=== PATIENT | male | born 1955 | race Two or more races ===

== ENCOUNTER 2017-06-07 08:00 | Inpatient (IN) | payer BC ==
[2017-06-07] VITALS: BP 123/71
[~2017-06-07] VITALS: Ht 167.6 cm; Wt 63.5 kg
--- NOTE | 2017-06-07 08:10 | NUR ---
PRESENTS TO ER C/O FEVER, NAUSEA, VOMITING AND HEADACHE X YESTERDAY. PATIENT CAME BACK FROM [facility] LAST 06/04/17. A/OX 4. BREATHING EVEN AND UNLABORED. NO SOB. VITALS STABLE. SAFETY AND COMFORT MEASURES IN PLACE. AWAITING MD ORDERS.
--- NOTE | 2017-06-07 08:15 | NUR ---
URINE OBTAINED AND SENT TO LAB.
--- NOTE | 2017-06-07 08:25 | NUR ---
NEW IV STARTED ON RAC, 20 G. BLOOD DRAWN AND SENT TO LAB.
[2017-06-07 08:39] LABS: BASOPHILS % (AUTO) 0.3 % (0.0-2.0); EOSINOPHILS % (AUTO) 0.1 % (0.0-6.0); HEMATOCRIT 39 % (39-51); HEMOGLOBIN 13.3 g/dL (13.5-17.5); LYMPHOCYTES # (AUTO) 0.4 /CMM (0.8-4.8); LYMPHOCYTES % (AUTO) 10.4 % (20.0-44.0); MEAN CORPUSCULAR HEMOGLOBIN 29 PG (26.0-33.0); MEAN CORPUSCULAR HGB CONC 34 g/dl (31.0-36.0); MEAN CORPUSCULAR VOLUME 85 fL (80-96); MONOCYTES # (AUTO) 0.5 /CMM (0.1-1.30); MONOCYTES % (AUTO) 12.9 % (2.0-12.0); NEUTROPHILS # (AUTO) 3.1 /CMM (1.8-8.9); NEUTROPHILS % (AUTO) 76.3 % (43.0-81.0); PLATELET COUNT (AUTO) 132 /CMM (150-450); RDW COEFFICIENT OF VARIATION 13.6 (11.5-15.0); RED BLOOD CELL COUNT(AUTO) 4.65 MIL/uL (4.5-6.0); WHITE BLOOD COUNT (AUTO) 4.1 K/uL (4.3-11.0)
[2017-06-07 08:40] LABS: APPEARANCE,URINE CLEAR (CLEAR); BILIRUBIN,URINE NEGATIVE (NEGATIVE); BLOOD, URINE NEGATIVE Ery/uL (NEGATIVE); COLOR,URINE YELLOW (YELLOW); KETONES,URINE 1+ (NEGATIVE); LEUKOCYTE ESTERASE ,URINE NEGATIVE (NEGATIVE); NITRITE, URINE NEGATIVE (NEGATIVE); PROTEIN,URINE 1+ mg/dl (NEGATIVE); UGLUCOSE NEGATIVE (NEGATIVE); UROBILINOGEN,URINE 0.2 EU/dL (0.2)
[2017-06-07 08:48] LABS: CALCIUM, SERUM 9.8 mg/dL (8.5-10.1); CREATININE 1.3 mg/dL (0.6-1.3); POTASSIUM 3.9 mmol/L (3.5-5.1)
[2017-06-07 08:54] LABS: ALBUMIN 3.7 g/dL (3.4-5.0); BILIRUBIN,DIRECT 0.2 mg/dL (0.0-0.2); BILIRUBIN,TOTAL 1.2 mg/dL (0.2-1.0); TOTAL PROTEIN, SERUM 7.6 g/dL (6.4-8.2)
[2017-06-07 08:55] LABS: BACTERIA,URINE Rare /HPF (None Seen); RBC,URINE NONE SEEN /HPF (0-2); SQUAMOUS EPITHELIAL CELL,UR Few /HPF (None Seen); WBC,URINE 0-2 /HPF (0-3)
[2017-06-07 08:58] LABS: INR 1.26 (0.87-1.13); PROTHROMBIN TIME 13.1 SECS (9.5-12.7)
[2017-06-07] MEDS ORDERED: ONDANSETRON HCL/PF 4 MG/2 ML VIAL ONE (09:14)
[2017-06-07] MEDS ORDERED: ACETAMINOPHEN ES 500 MG TABLET ONE (09:14)
[2017-06-07] MEDS ORDERED: ONDANSETRON HCL/PF 4 MG/2 ML VIAL IVP ONE (09:30)
[2017-06-07] MEDS ORDERED: IV NS 0.9% 1,000 ML BAG IV ONE ×2 (09:30→10:30)
[2017-06-07] MEDS ORDERED: ACETAMINOPHEN ES 500 MG TABLET PO ONE (09:30)
[2017-06-07] MEDS ORDERED: CEFTRIAXONE 1 G VIAL ONE (10:23)
[2017-06-07] MEDS ORDERED: CEFTRIAXONE 1GM BAG (ER ONLY) 50 ML IV ONE (10:30)
--- NOTE | 2017-06-07 10:57 | NUR ---
REPORT GIVEN TO AISLINN PINO FOR YANIRA UPON ADMISSION.
--- NOTE | 2017-06-07 11:32 | NUR ---
PATIENT TRANSPORTED TO ROOM 102 VIA ACLS PROTOCOL. RNAISLINN TO PROVIDE YANIRA.
[2017-06-07 11:45] VITALS: BP 108/65
--- NOTE | 2017-06-07 11:45 | NUR ---
HELIOTHERAPIST OPENING RECEIVED PATIENT FROM ER. A/OX4. PATIENT C/O HEADACHE NOT RELIEVED BY TYLENOL IN ER. PATIENT C/O ABDOMINAL PAIN AND BLOATING. NO SOB, DIFFICULTY BREATHING. TELE READING NSR 71. PATIENT APPEARS STABLE AT THIS TIME. LAMINATOR PREFORMS AT BEDSIDE FOR VS. FAMILY AT BEDSIDE. DR ALVARADO AT BEDSIDE.
[2017-06-07] MEDS ORDERED: MAGNESIUM HYDROXIDE 30 ML UDC PO PRN (13:00)
[2017-06-07] MEDS ORDERED: ZOLPIDEM TARTRATE 5 MG TABLET PO PRN (13:00)
[2017-06-07] MEDS ORDERED: Z GUARD REMEDY 2 OZ OINT TP PRN (13:00)
[2017-06-07 13:14] LABS: ALBUMIN 2.8 g/dL (3.4-5.0); BILIRUBIN,DIRECT 0.2 mg/dL (0.0-0.2); BILIRUBIN,TOTAL 0.8 mg/dL (0.2-1.0); TOTAL PROTEIN, SERUM 5.8 g/dL (6.4-8.2)
[2017-06-07] MEDS: ONDANSETRON HCL/PF 4 MG/2 ML VIAL IVP PRN (13:15)
[2017-06-07] MEDS: HYDROCODONE/APAP 5/325MG 1 EACH TABLET PO PRN ×2 (13:15→17:40)
[2017-06-07] MEDS: IV NS 0.9% 1,000 ML IV PRN ×2 (13:19→23:11)
--- NOTE | 2017-06-07 15:17 | NUR ---
IRRIGATION SPECIALIST NOTES CONFIRMED WITH ISELA PINO IN ER SEPSIS REASSESSMENT COMPLETED PRIOR TO TRANSFER TO FLOOR
[2017-06-07 15:37] LABS: BAND % (MANUAL) 10 % (0.0-5.0); LYMPHOCYTES % (MANUAL) 18 % (16-48); MONOCYTES % (MANUAL) 6 % (0-11.0); NEUTROPHILS % (MANUAL) 66 (42-76)
[2017-06-07 15:42] LABS: RETICULOCYTE COUNT 1.9 % (0.6-2.5)
[2017-06-07 15:53] LABS: INR 1.36 (0.87-1.13); PROTHROMBIN TIME 14.2 SECS (9.5-12.7)
[2017-06-07 15:54] LABS: D-DIMER 3.48 mg/L(FEU (0.17-0.50)
[2017-06-07 16:00] VITALS: BP 112/74
--- NOTE | 2017-06-07 18:00 | NUR ---
RN CLOSING NOTES CONTROLLED PATIENT PAIN WITH PAIN MEDICATION ORDERED PRN. CONTROLLED TEMPERATURE WITH NON-PHARMACOLOGIC MEASURES. FAMILY AT BED SITE. ALERT AND ORIENTED X 4. KEPT CLEAN AND COMFORTABLE
[2017-06-07 20:00] VITALS: BP 119/74
--- NOTE | 2017-06-07 20:20 | NUR ---
RN INITIAL TELE NOTES RECEIVED PATIENT FROM AM SHIFT, A/OX4. PATIENT DENIES ANY PAIN. DENIES ANY SOB, ABLE TO AMB T BATHROOM, GAIT STABLE. TELE READING NSR 60'S. PATIENT APPEARS STABLE AT THIS TIME. NETWORK ENGINEERING ADVISOR AT BEDSIDE FOR VS. FAMILY AT BED SIDE, ALL NEEDS MET, CALL LIGHT WITHIN REACH.
[2017-06-07] MEDS: ACETAMINOPHEN 325 MG TABLET PO PRN (23:27)
--- NOTE | 2017-06-07 23:30 | NUR ---
NOTED PT T 100.1, COOLING MEASURES UNDERTAKEN, ROOM TEMP ADJUSTED, PRN TYLENOL 325 MG GIVEN,RECHECKED AFTER 1 HR TEMP DECREASE TO 98.9 WILL CONT TO MONITOR.
[2017-06-08 00:14] VITALS: BP 123/71
[2017-06-08 04:00] VITALS: BP 123/83
--- NOTE | 2017-06-08 06:35 | NUR ---
RN CLOSING TELE NOTES ENDORSED PATIENT FROM AM SHIFT, A/OX4. PATIENT DENIES ANY PAIN. DENIES ANY SOB, ABLE TO AMB T BATHROOM, GAIT STABLE. TELE READING NSR 60'S. PATIENT APPEARS STABLE AT THIS TIME. RECORD SEARCHER AT BEDSIDE FOR AM CARE. ALL NEEDS MET, CALL LIGHT WITHIN REACH.
[2017-06-08 06:44] LABS: BASOPHILS % (AUTO) 0.3 % (0.0-2.0); EOSINOPHILS % (AUTO) 0.4 % (0.0-6.0); HEMATOCRIT 40 % (39-51); HEMOGLOBIN 13.3 g/dL (13.5-17.5); LYMPHOCYTES # (AUTO) 1.2 /CMM (0.8-4.8); LYMPHOCYTES % (AUTO) 27.2 % (20.0-44.0); MEAN CORPUSCULAR HEMOGLOBIN 29 PG (26.0-33.0); MEAN CORPUSCULAR HGB CONC 34 g/dl (31.0-36.0); MEAN CORPUSCULAR VOLUME 86 fL (80-96); MONOCYTES # (AUTO) 0.4 /CMM (0.1-1.30); MONOCYTES % (AUTO) 7.9 % (2.0-12.0); NEUTROPHILS # (AUTO) 2.9 /CMM (1.8-8.9); NEUTROPHILS % (AUTO) 64.2 % (43.0-81.0); PLATELET COUNT (AUTO) 77 /CMM (150-450); RDW COEFFICIENT OF VARIATION 14.1 (11.5-15.0); RED BLOOD CELL COUNT(AUTO) 4.59 MIL/uL (4.5-6.0); WHITE BLOOD COUNT (AUTO) 4.5 K/uL (4.3-11.0)
[2017-06-08 06:51] LABS: CALCIUM, SERUM 8.8 mg/dL (8.5-10.1); CREATININE 1.2 mg/dL (0.6-1.3); MAGNESIUM 1.9 mg/dL (1.8-2.4); PHOSPHORUS 2.6 mg/dL (2.5-4.9); POTASSIUM 4.1 mmol/L (3.5-5.1)
--- NOTE | 2017-06-08 07:15 | NUR ---
RN INITIAL NOTES: REC'D PT ON BED, NOT IN ANY DISTRESS, A/O X4, ABLE TO MAKE NEEDS KNOWN, DENIES ANY PAIN/DISCOMFORT AT THIS TIME. ON O2 AT 2LPM/NC, NO SOB. ON TELEMONITOR, SR. HAS R AC G20, PL, PATENT & INTACT W/ NS X 125 CC/HR INFUSING WELL, NO S/SX OF INFECTION/INFILTRATION NOTED. PROVIDED COMFORT AND SAFETY MEASURES. CALL LIGHT PLACED W/IN REACH. BED KEPT LOW & IN LOCKED POS. FAMILY AT BEDSIDE. WILL CONTINUE TO MONITOR AND ATTEND PT'S NEEDS.
[2017-06-08 08:00] VITALS: BP 128/85
[2017-06-08] MEDS: ONDANSETRON HCL/PF 4 MG/2 ML VIAL IVP PRN ×2 (08:20→20:09)
[2017-06-08] MEDS: ACETAMINOPHEN 325 MG TABLET PO PRN ×2 (08:26→21:19)
[2017-06-08] MEDS ORDERED: IV NS 0.9% 1,000 ML BAG IV SCH (09:00)
[2017-06-08 10:08] LABS: BAND % (MANUAL) 5 % (0.0-5.0); EOSINOPHILS % (MANUAL) 2 % (0-4); LYMPHOCYTES % (MANUAL) 20 % (16-48); MONOCYTES % (MANUAL) 12 % (0-11.0); NEUTROPHILS % (MANUAL) 61 (42-76)
--- NOTE | 2017-06-08 11:36 | NUR ---
RN NOTES: PT SEEN & EXAMINED BY DR. GUTIERREZ & DR. ALVARADO.
[2017-06-08 14:34] LABS: BASOPHILS % (AUTO) 0.2 % (0.0-2.0); EOSINOPHILS % (AUTO) 0.4 % (0.0-6.0); HEMATOCRIT 40 % (39-51); HEMOGLOBIN 13.3 g/dL (13.5-17.5); LYMPHOCYTES # (AUTO) 1.1 /CMM (0.8-4.8); LYMPHOCYTES % (AUTO) 19.4 % (20.0-44.0); MEAN CORPUSCULAR HEMOGLOBIN 29 PG (26.0-33.0); MEAN CORPUSCULAR HGB CONC 34 g/dl (31.0-36.0); MEAN CORPUSCULAR VOLUME 86 fL (80-96); MONOCYTES # (AUTO) 0.3 /CMM (0.1-1.30); MONOCYTES % (AUTO) 6.1 % (2.0-12.0); NEUTROPHILS % (AUTO) 73.9 % (43.0-81.0); PLATELET COUNT (AUTO) 63 /CMM (150-450); RED BLOOD CELL COUNT(AUTO) 4.64 MIL/uL (4.5-6.0); WHITE BLOOD COUNT (AUTO) 5.5 K/uL (4.3-11.0)
[2017-06-08 15:42] LABS: BAND % (MANUAL) 30 % (0.0-5.0); LYMPHOCYTES % (MANUAL) 8 % (16-48); MONOCYTES % (MANUAL) 18 % (0-11.0); MYELOCYTES % 1 % (0-0); NEUTROPHILS % (MANUAL) 43 (42-76)
[2017-06-08 16:00] VITALS: BP 127/82
--- NOTE | 2017-06-08 16:00 | NUR ---
RN NOTES: PER CM, FROM [facility] WILL DO PEER TO PEER WITH DR. GUTIERREZ. DR. GUTIERREZ MADE AWARE. GAVE CONTACT # OF DR. ELICEO FELIPE (HCP), .
[2017-06-08] MEDS ORDERED: OSELTAMIVIR PHOSPHATE 75 MG CAPSULE PO SCH (17:00)
[2017-06-08] MEDS ORDERED: FEE PK DOSING 1 MIN EA MC ONE (17:15)
[2017-06-08] MEDS ORDERED: PHYTONADIONE 5 MG TABLET PO ONE (17:30)
[2017-06-08] MEDS ORDERED: LEVOFLOXACIN 750 MG /D5W 150ML 750 MG in PREMIX 1 EA IV SCH (18:00)
[2017-06-08] MEDS ORDERED: VANCOMYCIN 1 GM in IV D5W 250 ML IV SCH (18:00)
--- NOTE | 2017-06-08 19:00 | NUR ---
RN CLOSING NOTES: NO ACUTE CHANGES NOTED W/IN SHIFT. PT TOLERATED O2 AT 2LPM/NC, NO SOB. R AC G20, PL, KEPT PATENT & INTACT W/ NS X 125 CC/HR INFUSING WELL, NO S/SX OF INFECTION/INFILTRATION NOTED. KEPT WELL RESTED. NEEDS ATTENDED. REPORT GIVEN TO OLGA PINO AT [facility] ROOM 4203 (TEL#[phone]) CALL LIGHT PLACED W/IN REACH. BED KEPT LOW & IN LOCKED POS. FAMILY AT BEDSIDE AND AWARE OF TRANSFER TO HOS. TRANSFER DOCUMENTS EXPLAINED TO THE PT WELL TO FAMILY, SIGNED BY PT'S MOTHER W/ VERBALIZATION OF UNDERSTANDING. ENDORSED TO PM RN FOR YANIRA.
[2017-06-08] MEDS ORDERED: MEROPENEM 1 G in IV NS 0.9% 100 ML IV SCH (21:00)
[2017-06-08 21:11] VITALS: BP 114/76
--- NOTE | 2017-06-08 21:33 | NUR ---
PT FOR DISCHARGE, SITE ACQUISITION SPECIALIST TIME WAS SUSPOSED TO BE 1999, F/U WITH CM AND NOTIFIED CHARGE NURSE THAT ETA IS 2133.
--- NOTE | 2017-06-08 21:33 | NUR ---
PT PICKED UP, DISCHARGING INFORMATION GIVEN BY AM NURSE, VS STABLE, WITH LOW GRADE FEVER ENDORSED, 2100 MEROPENEM IV GIVEN AND TEYLONAL 650 MG GIVEN FOR FEVER TO PREVENT SPIKE, REPORT GIVEN, WITH TO TRAVEL ALONG SIDE WITH PT. Addendum: 06/08/17 at 2317 by BARRON ESCALANTE RN DC TO [facility] WITH NO ASSIST TO YUNIEL.
[2017-06-08 23:05] VITALS: BP 114/76
== END 2017-06-08 21:37 | disposition short-term general hospital (02) | DRG 177 ==
LOC: ER 08:04 → TELE1 11:08 → MEDSG1 06-08 08:56
PROVIDERS: ADMIT Family Medicine; ATTEND Family Medicine
DX: J15.6 Pneumonia due to other Gram-negative bacteria (principal); D65 Disseminated intravascular coagulation [defibrination syndrome]; A92.0 Chikungunya virus disease; D68.9 Coagulation defect, unspecified; D70.9 Neutropenia, unspecified; A90 Dengue fever [classical dengue]; D69.6 Thrombocytopenia, unspecified; I95.9 Hypotension, unspecified; E87.2 Acidosis; J15.9 Unspecified bacterial pneumonia; E86.0 Dehydration; Z83.3 Family history of diabetes mellitus; R73.9 Hyperglycemia, unspecified; R74.0 Nonspecific elevation of levels of transaminase and lactic acid dehydrogenase [LDH]
CPT/HCPCS: 36415; 71010-TC; 80048-TC; 80061-TC; 80076-TC; 81000-TC; 83010; 83605-TC; 83615-TC; 83735-TC; 84100-TC; 85025-TC; 85045-TC; 85385-TC; 85396; 85730-TC; 86706; 86803; 87040-TC; 87081-TC; 87086-TC; 87207-TC; 87340; 87400; 87449; A4216; A4606; J0696; J1956; J2185; J2405; J3370; J7030; J7060; Z7610